=== PATIENT | female | born 1990 | race Caucasian/White ===

== ENCOUNTER 2022-03-07 11:59 | Emergency (ER) | payer OTHER ==
[~2022-03-07] VITALS: Ht 170.2 cm; Wt 56.7 kg
--- NOTE | 2022-03-07 12:47 | NUR ---
PT IOS IN ROOM #2B. DR LEUNG EVALUATED THE PT.
[2022-03-07] MEDS ORDERED: NAPR-1009 PO (14:07)
--- NOTE | 2022-03-07 14:20 | NUR ---
Patient discharged to home in stable condition. Written and verbal after care instructions given to patient. Patient verbalized understanding and compliance of instructions. Stressed follow up with primary doctor and medical photographer or return to ER for worsening s/s.
== END 2022-03-07 14:21 | disposition home or self-care (01) ==
LOC: ER 11:59
DX: S93.601A Unspecified sprain of right foot, initial encounter (principal); X50.9XXA Other and unspecified overexertion or strenuous movements or postures, initial encounter; Y93.89 Activity, other specified; Y92.099 Unspecified place in other non-institutional residence as the place of occurrence of the external cause
CPT/HCPCS: 73630; A4663